=== PATIENT | male | born 1970 | race Caucasian/White ===

== ENCOUNTER → 2020-08-09 16:50 | Outpatient (CLI) | payer OTHER, SELFPAY ==
--- NOTE | 2020-08-09 16:57 | CT_ITS ---
STUDY: CT ABDOMEN AND PELVIS WITH AND WITHOUT CONTRAST REASON FOR EXAM: Male, 50 years old. MICROSCOPIC HEMATURIA. Urinary symptoms x one year. Hx of mitral valve prolapse RADIATION DOSAGE (If Supplied By Facility): CTDIvol = ( 21.49 ) mGy, DLP = ( 2499.73 ) mGycm TECHNIQUE: Transaxial images were obtained from the dome of the diaphragm to the symphysis pubis without oral contrast. IV 100mL Isovue-300 was administered. Sagittal and coronal images were reconstructed. Individualized dose optimization techniques were used for this CT. COMPARISON: None. FINDINGS: The visualized lung bases are unremarkable. The visualized portions of the heart are within normal limits. Normal liver. Normal gallbladder and extrahepatic biliary system. Normal spleen. Normal pancreas. Normal bilateral adrenal glands. Normal right kidney. Normal left kidney. There is a small hiatal hernia. Normal small intestine. Normal colon. The appendix is visualized and appears normal. Normal abdominal aorta. Normal inferior vena cava. Normal retroperitoneum. Normal urinary bladder. There is a small umbilical hernia containing fat. Grade 1 anterolisthesis of L5 on S1 with spondylolysis of the pars interarticularis of the L5 vertebrae. Disc space narrowing at the L5-S1 level. CT/CT Abd/Pelvis W/WO Contrast IMPRESSION: No acute abnormality is seen. Grade 1 anterolisthesis of L5 on S1 with spondylolysis of the pars interarticularis of the L5 vertebrae and disc space narrowing. Electronically Signed: Maciel Rocha, at 9:17 EST , Service support ,
== END ==
PROVIDERS: PCP Preventive Medicine Occupational Medicine; Visit Provider Nurse Practitioner Adult Health
DX: R31.29 Other microscopic hematuria (principal)
CPT/HCPCS: 74178; Q9967